=== PATIENT | female | born 1975 | race Caucasian/White ===

== ENCOUNTER 2018-05-21 09:32 | Emergency (ER) | payer BC ==
[~2018-05-21] VITALS: Ht 154.9 cm; Wt 53.5 kg
--- NOTE | 2018-05-21 09:35 | NUR ---
BIB [facility] FOR C/O ABDOMINAL PAIN AND NAUSEA. PLACED ON A MONITOR. VITAL SIGNS STABLE.
--- NOTE | 2018-05-21 09:40 | NUR ---
MEDICATIONS GIVEN ORDERED.
[2018-05-21] MEDS ORDERED: METOCLOPRAMIDE HCL 10 MG/2 ML VIAL IV ONE (09:45)
[2018-05-21] MEDS ORDERED: PANTOPRAZOLE SODIUM 40 MG VIAL IV ONE (09:45)
[2018-05-21] MEDS ORDERED: PANTOPRAZOLE SODIUM 40 MG VIAL ONE (09:48)
[2018-05-21] MEDS ORDERED: METOCLOPRAMIDE HCL 10 MG/2 ML VIAL ONE (09:48)
[2018-05-21] MEDS ORDERED: LIDOCAINE VISCUS 2% 15 ML UDC MM ONE (10:00)
[2018-05-21] MEDS ORDERED: MAG HYDROX/AL HYDROX/SIMETH 30 ML LIQUID UDC PO ONE (10:00)
[2018-05-21 10:05] LABS: BASOPHILS % (AUTO) 0.3 % (0.0-2.0); CARBON DIOXIDE 26 mmol/L (21-32); CHLORIDE 104 mmol/L (98-107); CREATININE 0.7 mg/dL (0.6-1.3); EOSINOPHILS % (AUTO) 0.3 % (0.0-7.0); GLUCOSE 104 mg/dL (74-106); HEMATOCRIT 38.8 % (31.2-41.9); LYMPHOCYTES # (AUTO) 1.6 K/uL (20.0-40.0); LYMPHOCYTES % (AUTO) 12.9 % (20.5-51.5); MEAN CORPUSCULAR HEMOGLOBIN 28.4 uug (24.7-32.8); MEAN CORPUSCULAR HGB CONC 33 g/dL (32.3-35.6); MEAN CORPUSCULAR VOLUME 85.1 fL (75.5-95.3); MONOCYTES # (AUTO) 0.6 K/uL (2.0-10.0); MONOCYTES % (AUTO) 4.8 % (0.0-11.0); NEUTROPHILS # (AUTO) 9.9 K/uL (1.8-8.9); NEUTROPHILS % (AUTO) 81.7 % (38.5-71.5); PLATELET COUNT (AUTO) 266 K/uL (179-408); RED BLOOD CELL COUNT(AUTO) 4.56 MIL/uL (3.63-4.92); UREA NITROGEN, BLOOD 14 mg/dL (7-18); WHITE BLOOD COUNT (AUTO) 12.2 K/uL (3.8-11.8)
[2018-05-21] MEDS ORDERED: LIDOCAINE VISCUS 2% 15 ML UDC ONE (10:06)
[2018-05-21] MEDS ORDERED: MAG HYDROX/AL HYDROX/SIMETH 30 ML LIQUID UDC ONE (10:06)
[2018-05-21 10:10] LABS: BILIRUBIN,DIRECT 0.1 mg/dL (0.0-0.2); BILIRUBIN,TOTAL 0.4 mg/dL (0.2-1.0)
[2018-05-21 10:11] LABS: ALANINE AMINOTRANSFERASE 25 U/L (14-59); ALKALINE PHOSPHATASE 49 U/L (50-136); ASPARTATE AMINOTRANSFERASE 17 U/L (15-37); LIPASE 95 U/L (73-393)
--- NOTE | 2018-05-21 10:15 | NUR ---
PATIENT STATES PAIN AND NAUSEA HAVE DIMINISHED.
--- NOTE | 2018-05-21 10:30 | NUR ---
DR LAM AT BEDSIDE SPEAKING TO PATIENT AND FAMILY.
--- NOTE | 2018-05-21 10:43 | NUR ---
DC, RX AND FOLLOW UP INSTRUCTIONS GIVEN AND EXPLAINED TO PATIENT AND FAMILY WHO STATE THEY UNDERSTAND ALL INSTRUCTIONS. IV DC'D, CATHETER TIP INTACT, PRESSURE APPLIED, DRESSING APPLIED.
[2018-05-21 10:44] VITALS: BP 128/70
== END 2018-05-21 10:45 | disposition home or self-care (01) ==
LOC: ER 09:32
DX: K20.9 Esophagitis, unspecified (principal); E65 Localized adiposity
CPT/HCPCS: 36415; 80048; 80076; 83690; 84702; 85025; 96374; 96375; 99283; C9113; J2765; A4663; J3490; J7030